=== PATIENT | male | born 1985 | race Caucasian/White ===

== ENCOUNTER 2019-01-31 07:32 | Outpatient (CLI) | payer BC ==
[2019-01-31] MEDS ORDERED: Gadobenate Dimeglumine 529 MG/1 ML (20ML VIAL) ONE (09:00)
--- NOTE | 2019-01-31 09:29 | MRI ---
BRAIN MRI WITH AND WITHOUT CONTRAST: Date: 01/31/19 HISTORY: Family medical history of brain aneurysm. Frequent headaches. COMPARISON: None. FINDINGS: No hemorrhage on the axial gradient echo sequence. No parenchymal mass, mass effect, or midline shift. Brain volume is age-appropriate. Cortical gibbs-wh ite matter differentiation is preserved. Ventricles and sulci are patent and symmetric. No significant T2 or FLAIR white matter hyperintensities. Central arterial flow-voids are maintained. Absent restricted diffusion. Calvarium has a normal marrow signal intensity. Midline brain parenchymal structures are unremarkable . Mucus retention cyst in the left maxillary sinus. Partial opacification of the ethmoid air cells. Adore quate mastoid air cell aeration. No pathologic enhancement of the brain parenchyma. IMPRESSION: 1. Absent restricted diffusion. No acute infarct. 2. No pathologic enhancement of the brain parenchyma. 3. Mucus retention cyst in the left maxillary sinus. 4. Central arterial flow-voids are maintained. No definite evidence of an aneurysm at the level of t he [place]. Current study is limited in the overall evaluation. MR angiogram or CT angiogram of [place] if clinically warranted. POS: [facility]
== END 2019-01-31 07:33 | disposition home or self-care (01) ==
LOC: SCSMRI 07:32
PROVIDERS: ATTEND Family Medicine
DX: R51 Headache (principal); Z82.49 Family history of ischemic heart disease and other diseases of the circulatory system; M27.40 Unspecified cyst of jaw
CPT/HCPCS: 70553; A9577